=== PATIENT | male | born 1975 | race Caucasian/White ===

== ENCOUNTER 2020-09-28 22:10 | Emergency (ER) | payer OTHER ==
[~2020-09-28] VITALS: Ht 144.8 cm; Wt 54.4 kg
[2020-09-28 22:30] VITALS: BP_SYST 138
[2020-09-29] MEDS ORDERED: ERYTHROMYCIN 0.5% EYE OINT 3.5 GM OP ONE (01:45)
[2020-09-29] MEDS ORDERED: GENTAMICIN SULFATE 0.3% Non-Formulary OPHT. 5 ML DROPS OP ONE ×2 (02:00→02:01)
[2020-09-29] MEDS ORDERED: TOBR3.5O2 LEFT EYE (02:26)
[2020-09-29 02:35] VITALS: BP_SYST 138
== END 2020-09-29 02:35 | disposition home or self-care (01) ==
LOC: SED 22:10
DX: S05.02XA Injury of conjunctiva and corneal abrasion without foreign body, left eye, initial encounter (principal); Z79.899 Other long term (current) drug therapy; Z88.6 Allergy status to analgesic agent; W51.XXXA Accidental striking against or bumped into by another person, initial encounter; Y93.89 Activity, other specified; Y92.89 Other specified places as the place of occurrence of the external cause; Y99.0 Civilian activity done for income or pay
CPT/HCPCS: 99283